=== PATIENT | female | born 1990 | race Caucasian/White ===

== ENCOUNTER → 2023-11-16 14:32 | Outpatient (REF) | payer OTHER, SELFPAY | LOC: RAD 14:32 | PROVIDERS: ATTENDING PHYSICIAN Nurse Practitioner Family | DX: Z36.9 Encounter for antenatal screening, unspecified (principal) | CPT/HCPCS: 76801 ==

== ENCOUNTER → 2023-11-26 13:48 | Outpatient (REF) | payer OTHER, SELFPAY | LOC: RAD 13:48 | PROVIDERS: ATTENDING PHYSICIAN Obstetrics & Gynecology | DX: O26.859 Spotting complicating pregnancy, unspecified trimester (principal) | CPT/HCPCS: 76801 ==

== ENCOUNTER → 2024-04-13 08:33 | Outpatient (REF) | payer OTHER, SELFPAY ==
--- NOTE | 2024-04-13 09:10 | PN.DIAED06 ---
Meal Plan - Gestational
- Breakfast
Gestational Diabetes Meal Plan Name: 1800 calories
Breakfast - Total Carbohydrate (grams): 30
Breakfast - Starch Carbohydrate: 1
Breakfast - Fruit Carbohydrate: 0
Breakfast - Milk Carbohydrate: 1
Breakfast - Nonstarchy Vegetables: Yes
Breakfast - Meat/Protein: 1
Breakfast - Fat: 2
- Morning Snack
Morning Snack - Total Carbohydrate (grams): 30
Morning Snack - Starch Carbohydrate: 1
Morning Snack - Fruit Carbohydrate: 0
Morning Snack - Milk Carbohydrate: 1
Morning Snack - Nonstarchy Vegetables: Yes
Morning Snack - Meat/Protein: 0.5
Morning Snack - Fat: 0
- Lunch
Lunch - Total Carbohydrate (grams): 45
Lunch - Starch Carbohydrate: 2
Lunch - Fruit Carbohydrate: 1
Lunch - Milk Carbohydrate: 0
Lunch - Nonstarchy Vegetables: Yes
Lunch - Meat/Protein: 2
Lunch - Fat: 1
- Afternoon Snack
Afternoon Snack - Total Carbohydrate (grams): 30
Afternoon Snack - Starch Carbohydrate: 1
Afternoon Snack - Fruit Carbohydrate: 1
Afternoon Snack - Milk Carbohydrate: 0
Afternoon Snack - Nonstarchy Vegetables: Yes
Afternoon Snack - Meat/Protein: 1
Afternoon Snack - Fat: 0
- Dinner
Dinner - Total Carbohydrate (grams): 45
Dinner - Starch Carbohydrate: 2
Dinner - Fruit Carbohydrate: 0
Dinner - Milk Carbohydrate: 1
Dinner - Nonstarchy Vegetables: Yes
Dinner - Meat/Protein: 2
Dinner - Fat: 2
- Evening Snack
Evening Snack - Total Carbohydrate (grams): 30
Evening Snack - Starch Carbohydrate: 1
Evening Snack - Fruit Carbohydrate: 0
Evening Snack - Milk Carbohydrate: 1
Evening Snack - Nonstarchy Vegetables: Yes
Evening Snack - Meat/Protein: 1
Evening Snack - Fat: 1
--- NOTE | 2024-04-13 10:52 | PN.DIAED02 ---
Referral
Referred For: Gestational Diabetes Self-Management Training
PHI Release Authorization Form Signed: Yes
Demographic
Patient's primary language-: Chadian
- Social
Primary Support Person: Self & spouse
Primary Care Takers: Self
Living Arrangements: Self & spouse
Glycemic Control
- Oral Glucose Tolerance Test
Date: 04/07/24
1-Hour (mg/dL): 215 (Unsure if 75 g or 100 g)
Medical History of Diabetes
- Female Specific Medical History
Currently ?: Yes
Receiving care?: Yes
Estimated date of Confinement: 06/25/24
Care Plan
- Education Needs
Patient Education Needs: Preconception care//gestational diabetes management
Recommended Diabetes Training Program based on assessment: Gestational Diabetes Management
- Plan of Care
Plan of Care:
Met with Andreas and her Rick for new diagnosis GDM. EDC 06/25/24, female. Discussed what is happening to her body and importance to keep blood sugars well controlled to avoid any complications to her baby (caesarean and hypoglycemia).
Reassured her that BS can be well controlled and she has done nothing to cause. Provided with and instructions given on Contour Next Gen glucometer. Good return demonstration with result of 106 mg/dl, 1 1/2 hr post breakfast of toast, cony and
avocado. She is aware of proper testing technique, testing times (FBS and 2 hr post prandial every meal) and expected results (FBS <95 mg/dl, 2 hr pp <120 mg/dl and 1 hr pp<140 mg/dl). She is aware to call Ana at [facility] every Wednesday
with her readings (phone number provided) and to xuan on sheet if she had tested 1 hr pp. WARREN Fisher called in RX for test strips/lancets to pharmacy at [facility]. Pre 5'4' and 125#, current weight 156 mg/dl. Provided with 1800 micheal ADA
GDM meal plan, reduced 3 snacks from 30 gm to 15 gm. She is aware that this meal plan accounts for 300 extra calories per day for the fetus. Discussed macronutrients and impact each has on BS. 'Choose your Foods' booklet', snack option handout
provided. Andreas is aware to hold off consuming fruit/fruit juice until noon. Discussed importance of exercising to prepare body for delivery. States she had walked prior to but with the heat/humidity, she has not been continuing. She will
walk indoors when weather is not condusive to being outside, as well as attempt to break up her time at the computer by taking a little walk. She is aware thata having GDM puts her at risk to develop T2DM in the future. If insulin is required, she
will call the office for instructions.
== END ==
LOC: DES 08:33
PROVIDERS: ATTENDING PHYSICIAN Obstetrics & Gynecology
DX: O24.419 Gestational diabetes mellitus in pregnancy, unspecified control (principal)
CPT/HCPCS: 99078

== ENCOUNTER → 2024-04-13 16:01 | Outpatient (REF) | payer OTHER, SELFPAY | LOC: PNTC 16:01 | PROVIDERS: ATTENDING PHYSICIAN Obstetrics & Gynecology | DX: O24.414 Gestational diabetes mellitus in pregnancy, insulin controlled (principal) | CPT/HCPCS: 76816 ==

== ENCOUNTER 2024-06-09 22:28 | Inpatient (IN) | payer OTHER, SELFPAY ==
[2024-06-09 22:46] VITALS: BP 122/70; BMI 27.8
[2024-06-09 23:06] LABS: Glucose - Point of Care 94 mg/dl (70-99)
[2024-06-09 23:33] LABS: % Basophils 0.2 % (0-2); % Eosinophils 0.2 % (0-6); % Immature Granulocytes 0.3 % (0-0.5); % Lymphocytes 15.8 % (20.5-51.1); % Monocytes 9.2 % (1.7-9.3); % Neutrophils 74.3 % (42.2-75.2); Absolute Lymphocytes 1.5 10^3/uL (1.2-3.4); Absolute Monocytes 0.9 10^3/uL (0.1-0.6); Hematocrit 32.3 % (37.0-47.0); Hemoglobin 11.1 g/dL (12.0-16.0); Mean Corp Hgb Conc. 34.4 g/dL (33.0-37.0); Mean Corpuscular Hgb 31.4 pg (27.0-31.0); Mean Corpuscular Volume 91.2 fL (81.0-99.0); Mean Platelet Volume 10.6 fL (7.4-10.4); Nucleated Red Blood Cells % 0 %; Platelet Count 240 10^3/uL (130-400); Red Blood Cell Count 3.54 10^6/uL (4.20-5.40); Red Cell Dist. Width 12.4 % (11.5-14.5); White Blood Cell Count 9.5 10^3/uL (4.8-10.8)
[2024-06-10] MEDS: MORPHINE SULFATE 2 MG IV (00:28)
[2024-06-10] MEDS: FENTANYL/BUPIVACAINE 100 EPIDURAL (01:36)
[2024-06-10] MEDS: SUBLIMAZE 100 MCG EPIDURAL (01:36)
[2024-06-10 02:29] LABS: Glucose - Point of Care 145 mg/dl (70-99)
[2024-06-10] MEDS: NOVOLOG FLEXPEN-HIGH RESISTANCE 1 UNITS SC (02:46)
[2024-06-10] MEDS: PITOCIN 30 UNITS/NSS 500 ML IV (04:23)
[2024-06-10] MEDS: XYLOCAINE-MPF 1% VIAL 30 ML INFIL (04:59)
[2024-06-10] MEDS: PRENATAL PLUS 1 TABLET PO (07:51)
[2024-06-10] MEDS: MOTRIN 600 MG PO ×2 (14:10→20:25)
[2024-06-10] MEDS: TYLENOL 650 MG PO ×2 (16:10→20:25)
[2024-06-10] MEDS: SENOKOT-S 1 TABLET PO (20:25)
[2024-06-11] MEDS: MOTRIN 600 MG PO ×3 (02:31→18:31)
[2024-06-11] MEDS: TYLENOL 650 MG PO ×3 (02:31→18:31)
[2024-06-11 04:58] LABS: Hematocrit 31.5 % (37.0-47.0); Hemoglobin 10.8 g/dL (12.0-16.0)
[2024-06-11] MEDS: PRENATAL PLUS 1 TABLET PO (08:06)
[2024-06-12] MEDS: MOTRIN 600 MG PO (04:52)
[2024-06-12] MEDS: TYLENOL 650 MG PO (04:52)
[2024-06-12] MEDS: PRENATAL PLUS 1 TABLET PO (08:14)
[2024-06-13 11:18] LABS: Syphilis/T. pallidum Ab Reflex Negative (Negative)
== END 2024-06-12 12:15 | disposition home or self-care (01) | DRG 807 ==
LOC: LDRP 22:28
PROVIDERS: ADMITTING PHYSICIAN Obstetrics & Gynecology
PROC: 0KQM0ZZ Repair Perineum Muscle, Open Approach (ICD-10-PCS; 2024-06-10)
PROC: 10907ZC Drainage of Amniotic Fluid, Therapeutic from Products of Conception, Via Natural or Artificial Opening (ICD-10-PCS; 2024-06-10)
PROC: 10E0XZZ Delivery of Products of Conception, External Approach (ICD-10-PCS; 2024-06-10)
DX: O24.420 Gestational diabetes mellitus in childbirth, diet controlled (principal); Z37.0 Single live birth; O70.1 Second degree perineal laceration during delivery; Z3A.37 37 weeks gestation of pregnancy
CPT/HCPCS: 88307; 36415; 82962; 85014; 85018; 85025; 86780; 86850; 86900; 86901

== ENCOUNTER → 2024-11-12 10:47 | Outpatient (REF) | payer OTHER, SELFPAY | LOC: PAVMRI 10:47 | PROVIDERS: ATTENDING PHYSICIAN Psychiatry & Neurology Neurology | DX: M54.12 Radiculopathy, cervical region (principal) | CPT/HCPCS: 72141 ==